=== PATIENT | male | born 1980 | race Caucasian/White ===

== ENCOUNTER 2019-08-17 08:25 | Emergency (ER) | payer MEDICAID ==
[~2019-08-17] VITALS: Ht 170.2 cm; Wt 76.0 kg
[2019-08-17] MEDS ORDERED: IBUPROFEN 800MG TABLET PO ONE (10:00)
[2019-08-17] MEDS ORDERED: ACETAMINOPHEN 500MG TABLET PO ONE (10:00)
[2019-08-17 10:15] VITALS: BP 146/87
== END 2019-08-17 11:41 | disposition home or self-care (01) ==
LOC: ER 08:25
DX: S63.92XA Sprain of unspecified part of left wrist and hand, initial encounter (principal); S30.1XXA Contusion of abdominal wall, initial encounter; W17.89XA Other fall from one level to another, initial encounter; Y93.89 Activity, other specified; Y92.89 Other specified places as the place of occurrence of the external cause; Y99.8 Other external cause status
CPT/HCPCS: 73130; 74176; 99284

== ENCOUNTER 2023-09-24 10:20 | Emergency (ER) | payer MEDICAID ==
[~2023-09-24] VITALS: Ht 172.7 cm; Wt 81.0 kg
[2023-09-24 10:22] VITALS: BP 143/97; O2SAT 97
[2023-09-24 10:45] LABS: BASOPHILS % 0.7 % (0.0-2.0); EOSINOPHILS % 4.3 % (0.0-5.0); HEMATOCRIT. 46.6 % (42.0-52.0); HEMOGLOBIN. 15.3 g/dL (14.0-18.0); LYMPHOCYTES % 20.4 % (20.0-50.0); MEAN CORPUSCULAR HEMOGLOBIN 30.6 pg (28.0-32.0); MEAN CORPUSCULAR HGB CONC 32.9 g/dL (31.0-37.0); MEAN CORPUSCULAR VOLUME 93.1 fL (80.0-94.0); MEAN PLATELET VOLUME 9.4 fl (7.4-10.4); NEUTROPHILS % 69.6 % (40.0-76.0); PLATELET 345 x1000/uL (130-400); RED CELL DISTRIBUTION WIDTH 13.6 % (11.6-14.6); WHITE BLOOD COUNT 12.7 x1000/uL (4.5-11.0)
[2023-09-24 11:02] LABS: ALANINE AMINOTRANSFERASE 32 IU/L (10-49); ALBUMIN 4.6 g/dL (3.2-4.8); ASPARTATE AMINOTRANSFERASE 22 IU/L (<34); BILIRUBIN TOTAL 0.4 mg/dL (0.1-1.0); CALCIUM 9.6 mg/dL (8.7-10.4); CARBON DIOXIDE 24 mEq/L (21-32); CHLORIDE 108 mEq/L (98-107); CREATININE 0.8 mg/dL (0.6-1.3); GLUCOSE 129 mg/dL (70-105); POTASSIUM 4.1 mEq/L (3.5-5.1); PROTEIN TOTAL 8.1 g/dL (6.0-8.3); SODIUM 137 mEq/L (136-145); UREA NITROGEN BLOOD 12 mg/dL (9-23)
[2023-09-24 11:14] LABS: CLARITY URINE CLEAR (CLEAR); COLOR URINE YELLOW (YELLOW); GLUCOSE URINE NEGATIVE (NEGATIVE); KETONES URINE NEGATIVE (NEGATIVE); LEUKOCYTE ESTERASE URINE NEGATIVE (NEGATIVE); NITRITE URINE NEGATIVE (NEGATIVE); OCCULT BLOOD URINE NEGATIVE (NEGATIVE); PH URINE 5.5 (4.5-8.0); PROTEIN URINE NEGATIVE (NEGATIVE); SPECIFIC GRAVITY URINE 1.005 (1.005-1.030); UROBILINOGEN URINE 0.2 E.U./dL (0.2-1.0)
[2023-09-24] MEDS ORDERED: AZIT250T12 MT (14:15)
[2023-09-24] MEDS ORDERED: GUAI120L58 MT (14:15)
[2023-09-24] MEDS ORDERED: BENZ200C52 MT (14:36)
[2023-09-24 16:35] VITALS: PULSE 76; RESP 20; TEMP 98
== END 2023-09-24 16:35 | disposition home or self-care (01) ==
LOC: ER 10:20
DX: J40 Bronchitis, not specified as acute or chronic (principal); R04.2 Hemoptysis; I49.9 Cardiac arrhythmia, unspecified
CPT/HCPCS: 80053; 81003; 85025; 86850; 86900; 86901; 36415; 71046; 93005; 99285; Z7610 ×2

== ENCOUNTER 2025-05-04 07:12 | Emergency (ER) | payer MEDICAID ==
[~2025-05-04] VITALS: Ht 167.6 cm; Wt 79.0 kg
[~2025-05-04 07:12] MED LIST: AZIT250T12 MT; BENZ200C52 MT
[2025-05-04 07:41] LABS: BASOPHILS % 0.7 % (0.0-2.0); EOSINOPHILS % 4.9 % (0.0-5.0); HEMATOCRIT. 43.4 % (42.0-52.0); HEMOGLOBIN. 14.7 g/dL (14.0-18.0); LYMPHOCYTES % 33.3 % (20.0-50.0); MEAN PLATELET VOLUME 9.3 fl (7.4-10.4); MONOCYTES % 8.7 % (2.0-8.0); NEUTROPHILS % 52.4 % (40.0-76.0); PLATELET 268 x1000/uL (130-400); RED BLOOD CELL COUNT 4.76 mill/uL (4.7-6.1); RED CELL DISTRIBUTION WIDTH 13.7 % (11.6-14.6)
[2025-05-04 07:54] LABS: CREATININE 0.7 mg/dL (0.6-1.3); INR 1.0; UREA NITROGEN BLOOD 10 mg/dL (9-23)
[2025-05-04 07:55] LABS: TROPONIN I HIGH SENSITIVITY < 4 ng/L (3.0-53)
[2025-05-04 09:12] LABS: INFLUENZA TYPE A Presumptive Negative (Pres. Neg.); INFLUENZA TYPE B Presumptive Negative (Pres. Neg.); RESPIRATORY SYNCYTIAL VIRUS Not Detected (Not Detectd)
[2025-05-04 09:32] VITALS: PULSE 60; RESP 16; O2SAT 99
[2025-05-04] MEDS: ALBUTEROL 6.7GM HFA INHALER ORI ONE (09:32)
[2025-05-04] MEDS ORDERED: P20 MT (09:59)
[2025-05-04] MEDS ORDERED: ALBU18HF2 IH (09:59)
[2025-05-04 10:10] VITALS: BP 134/93; PULSE 60; RESP 16; TEMP 36.7; O2SAT 99
== END 2025-05-04 10:11 | disposition home or self-care (01) ==
LOC: ER 07:12
DX: J06.9 Acute upper respiratory infection, unspecified (principal); B97.89 Other viral agents as the cause of diseases classified elsewhere; Z20.822 Contact with and (suspected) exposure to COVID-19; Z79.899 Other long term (current) drug therapy
CPT/HCPCS: 80048; 85025; 85610; 85730; 87420; 84484; 87804 ×2; 36415; 71045; 94640; 93005; 99285; 87426; Z7610; 94070; 94664